=== PATIENT | female | born 1995 | race Two or more races ===

== ENCOUNTER 2025-07-10 06:55 | Inpatient (IN) | payer OTHER ==
[~2025-07-10] VITALS: Ht 162.6 cm; Wt 77.1 kg
[2025-07-10] VITALS (9 sets, daily range): BP systolic 119–147; BP diastolic 72–94
[2025-07-10] MEDS ORDERED: RINGERS SOLUTION,LACTATED 1,000 ML IV SCH (08:00)
[2025-07-10 08:21] LABS: BASO % 0.3 % (0.1-1.2); EOS # 0.23 (0.04-0.54); EOS % 1.6 % (0.7-7.0); LYMPH # 1.59 (1.18-3.74); LYMPH % 11.1 % (19.3-53.1); MEAN PLATELET VOLUME 11.30 fl (9.4-12.4); MONO # 1.07 (0.24-0.82); MONO % 7.5 % (4.7-12.5); NEUT # 11.26 (1.56-6.13); NEUT % 78.7 % (34.0-71.1); RED CELL DISTRIBUTION WIDTH 13.8 % (11.6-14.4)
[2025-07-10] MEDS ORDERED: PRENATAL + DHA1 EAC1 PO (08:31)
[2025-07-10 08:35] LABS: URINE APPEARANCE Clear; URINE BILIRRUBIN Negative (NEGATIVE); URINE BLOOD Negative; URINE COLOR Yellow; URINE GLUCOSE Negative (NEGATIVE); URINE KETONE Negative (NEGATIVE); URINE LEUKOCYTE Negative; URINE NITRATE Negative; URINE PROTEIN Negative (NEGATIVE); URINE UROBILINOGEN 0.2 E.U./dl
[2025-07-10 08:38] LABS: URINE BACTERIA 106.7 uL (0.0-1933); URINE EPITHELIAL CELLS 22.8 uL (0.0-38.8); URINE WBC 5.9 uL (0.0-23.2)
[2025-07-10 08:44] LABS: URINE CAST 0.00 uL (0.0-1.40); URINE RBC 1.7 uL (0.0-20.8)
[2025-07-10 09:02] LABS: INR 0.96
[2025-07-10] MEDS ORDERED: OXYTOCIN 20 UNITS/500ML RL PIGGYBAG IV SCH (12:30)
[2025-07-10] MEDS ORDERED: CHLORHEXIDINE GLUCONATE 120 ML BOTTLE TOP ONE ×2 (18:17→19:15)
[2025-07-10] MEDS ORDERED: ERYTHROMYCIN BASE OPHT 1GM EACH TUBE OP ONE (18:17)
[2025-07-10] MEDS ORDERED: OXYTOCIN 20 UNITS/1000ML RL PIGGYBAG IV ONE (18:17)
[2025-07-10] MEDS ORDERED: LIDOCAINE HCL 1% 10ML VIAL ONE (18:17)
[2025-07-10] MEDS ORDERED: OXYTOCIN 1,000 ML IV SCH (19:15)
[2025-07-10] MEDS ORDERED: ACETAMINOPHEN 500 MG GEL..CAP PO PRN (19:15)
[2025-07-10 23:54] LABS: BASO % 0.2 % (0.1-1.2); EOS # 0.04 (0.04-0.54); EOS % 0.2 % (0.7-7.0); LYMPH # 1.57 (1.18-3.74); LYMPH % 8.9 % (19.3-53.1); MEAN PLATELET VOLUME 11.10 fl (9.4-12.4); MONO # 1.25 (0.24-0.82); MONO % 7.1 % (4.7-12.5); NEUT # 14.66 (1.56-6.13); NEUT % 83.0 % (34.0-71.1); RED CELL DISTRIBUTION WIDTH 13.6 % (11.6-14.4)
[2025-07-11 03:15] VITALS: BP 134/82
[2025-07-11 08:59] VITALS: BP 123/71
[2025-07-11] MEDS ORDERED: PNV,CALCIUM 72/IRON/FOLIC ACID 1 TAB TABLET PO SCH (09:00)
[2025-07-11 19:28] VITALS: BP 122/80
[2025-07-12] VITALS: BP 127/81
[2025-07-12 08:12] VITALS: BP 113/66
== END 2025-07-12 12:11 | disposition home or self-care (01) | DRG 807 ==
LOC: LDR 06:55 → OB/GYN 23:45
PROVIDERS: ADMIT Obstetrics & Gynecology; ATTEND Obstetrics & Gynecology
PROC: 10E0XZZ Delivery of Products of Conception, External Approach (ICD-10-PCS; principal; 2025-07-10)
PROC: 4A1HXCZ Monitoring of Products of Conception, Cardiac Rate, External Approach (ICD-10-PCS; 2025-07-10)
DX: O80 Encounter for full-term uncomplicated delivery (principal); Z37.0 Single live birth; Z3A.39 39 weeks gestation of pregnancy